=== PATIENT | male | born 1990 | race Hispanic/Latino ===

== ENCOUNTER → 2020-05-28 | Outpatient (CLI) | payer BC ==
--- NOTE | 2020-05-28 13:50 | Diagnostic Imaging Report ---
TECHNIQUE: Magnetic resonance imaging of the RIGHT KNEE was performed WITHOUT injected contrast. HISTORY: Right knee pain COMPARISON: None available. FINDINGS: LIGAMENTS AND TENDONS: ACL: Intact PCL: Intact Collateral ligaments: Medial collateral ligament complete to near complete tear centered at the joint line. Lateral complex intact. Iliotibial band: Unremarkable Popliteal tendon: Intact Extensor mechanism: Intact JOINT: Menisci: Medial: Partial radial tear of the posterior horn root junction. Lateral: Intact Articular Cartilage: Medial Compartment: No focal defect. Lateral Compartment: No focal defect. Patellofemoral Compartment: No focal defect. Joint Fluid: The amount of fluid within the joint is within physiologic limits. BONE: Bone contusion to the lateral femoral condyle. No acute fracture. SOFT TISSUES: Otherwise, unremarkable. IMPRESSION: Medial collateral ligament complete or complete tear centered at the joint line. Medial meniscus partial radial tear posterior horn root junction. Lateral femoral condyle contusion. Signed by: Dr. Austin Valdovinos M.D. on 05/28/2020 1:46 PM
== END ==
LOC: MRI 12:36
PROVIDERS: ATTEND Orthopaedic Surgery
DX: M23.8X1 Other internal derangements of right knee (principal); M25.361 Other instability, right knee